=== PATIENT | male | born 2000 | race Caucasian/White ===

== ENCOUNTER 2021-07-23 21:30 | Emergency (ER) | payer MEDICAID, SELFPAY ==
[2021-07-23] MEDS: LORazepam 2 mg/mL INJ 1 mL 0.5 MG IVP (21:31)
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
--- NOTE | 2021-07-23 21:35 | ECG_ITS ---
[facility] Test Date: 2021-07-23 Pat Name: Nathaniel Swift Department: Room: Gender: Male Pul[employer]er: : 2000 Requested By: Ghanshyam Retana Order Number: [id number] Garcia MD: Erica Nation M.D. Measurements Intervals [place] Rate: 42 P: 29 IA: 114 QRS: 72 QRSD: 106 T: 58 QT: 508 QTc: 428 Interpretive Statements SINUS BRADYCARDIA WITH SHORT IA INTERVAL Compared to ECG 06/30/2019 14:03:57 Sinus rhythm no longer present Sinus arrhythmia no longer present Electronically Signed On 07-25-2021 5:47:03 CDT by Erica Nation M.D. [id number]
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
[2021-07-23 21:43] LABS: Basophils # 0.1 10^3/uL (0.0-0.1); Basophils % 0.4 %; Eosinophils % 0.3 %; Hematocrit 51.8 % (42.0-52.0); Hemoglobin 17.6 g/dL (11.7-16.6); Lymphocytes # 7.8 10^3/uL (0.8-4.8); Lymphocytes % 49.3 %; Mean Corpuscular Hemoglobin 30.4 pg (28.0-34.0); Mean Corpuscular Volume 89.6 fl (80-94); Monocytes # 0.9 10^3/uL (0.2-0.9); Monocytes % 5.9 %; Neutrophils # 6.92 10^3/uL (1.8-7.7); Neutrophils % 43.8 %; Nucleated Red Blood Cells % 0 %; Platelet Count 360 10^3/cmm (130-400); Red Blood Count 5.78 10^6/uL (4.1-5.3); Red Cell Distribution Width 12.7 % (12.1-15.1); White Blood Count 15.8 10^3/uL (4.0-10.0)
[2021-07-23 21:44] VITALS: BP 132/86; PULSE 43; RESP 18; TEMP 36.7; O2SAT 98; BMI 24.3
[2021-07-23] MEDS: ondansetron 2 mg/ML SDV 2 mL 4 MG IVP (21:45)
[2021-07-23 21:53] LABS: INR 1.06 (0.8-1.2)
[2021-07-23 21:54] LABS: Partial Thromboplastin Time 22.7 SECONDS (23.9-36.7)
[2021-07-23 22:00] LABS: Alanine Aminotransferase 12 U/L (0-41); Albumin Level 4.9 g/dL (3.5-5.2); Alcohol Level 263 mg/dL (0-10); Alkaline Phosphatase 93 IU/L (40-130); Anion Gap 20.7 (5-19); Aspartate Amino Transferase 21 U/L (0-40); Blood Urea Nitrogen 9 mg/dL (6-20); Calcium 9.1 mg/dL (8.5-10.5); Carbon Dioxide 20 mmol/L (22-29); Chloride 103 mmol/L (98-107); Globulin 3.2 g/dL (1.3-4.6); Glucose 122 mg/dL (65-115); Osmolality Calculated 292 mOsm/kg (285-295); Sodium 141 mmol/L (136-145); Total Bilirubin 0.3 mg/dL (0.15-1.2); Total Protein 8.1 g/dL (6.6-8.7)
[2021-07-23] MEDS: LORazepam 2 mg/mL INJ 1 mL 1 MG IVP (22:05)
[2021-07-23 22:10] LABS: Potassium 2.7 mmol/L (3.5-5.1); Slide Review Slide Review Perform
[2021-07-23] MEDS: succinylcholine 20 mg/mL SDV 10mL IVP (22:10)
--- NOTE | 2021-07-23 22:36 | XRR_ITS ---
PROCEDURE INFORMATION: Exam: XR Chest Exam date and time: 07/23/2021 10:36 PM Age: 20 years old Clinical indication: Device placement; Ett placement (vent status); Additional info: Tube placement TECHNIQUE: Imaging protocol: XR of the chest. Views: 1 view. COMPARISON: CR Chest 1 [place] [id number] 06/30/2019 2:06 PM FINDINGS: Tubes, catheters and devices: Endotracheal tube is well positioned above noel. Lungs: Unremarkable. No consolidation. Pleural spaces: No pneumothorax. Heart/Mediastinum: Unremarkable. No cardiomegaly. Bones/joints: No acute findings. XR/XR chest 1V [id number] IMPRESSION: No acute findings. Radiation Dose CTDIVOL = (mGy): DLP = (mGy-cm)
[2021-07-23] MEDS: fentaNYL 50 mcg/mL INJ 2mL IVP (22:39)
[2021-07-23 22:48] LABS: SARS Covid-2 Antigen Negative (Negative)
[2021-07-23 22:54] LABS: Add Urine Microscopic? YES; Bilirubin Urine Neg (Negative); Blood Urine 3+ (Negative); Glucose Urine UA Norm (Normal); Ketones Urine Negative (Negative); Leukocyte Esterase Urine Negative (Negative); Nitrate Urine Negative (Negative); Protein Urine Trace (Negative); Specific Gravity, Urine 1.015 (1.005-1.030); Urine Appearance Clear (CLEAR); Urine Color Yellow (Yellow); Urobilinogen Urine Norm (Negative); pH Urine 5 (5-7)
[2021-07-23 22:55] LABS: Add Urine Culture? No; Amphetamines Screen Urine Negative (Negative); Bacteria Urine TRACE /hpf; Barbiturates Screen Urine Negative (Negative); Benzodiazepines Screen Urine Negative (Negative); Cocaine Screen Urine Negative (Negative); Opiate Screen Urine Negative (Negative); PCP Screen Urine Negative (Negative); RBC Urine 0-4 /hpf (0-2); Squamous Epithelial Cell Urine 0-4 /hpf (0-5); THC Screen Urine Positive (Negative); WBC Urine 0-4 /hpf (0-5)
[2021-07-23 23:03] LABS: Blood Urea Nitrogen 10 mg/dL (6-20); Calcium 8.6 mg/dL (8.5-10.5); Carbon Dioxide 19 mmol/L (22-29); Chloride 103 mmol/L (98-107); Glomerular Filtration Rate 142.4 mL/min (90-130); Glucose 150 mg/dL (65-115); Osmolality Calculated 296 mOsm/kg (285-295); Sodium 142 mmol/L (136-145)
[2021-07-23 23:07] LABS: Anion Gap 22.7 (5-19); Potassium 2.7 mmol/L (3.5-5.1)
[2021-07-23] MEDS: propofol 1,000 MG/100 ML INJ 4.49 MG IV (23:13)
[2021-07-23] MEDS: vecuronium 10 mg SDV IVP (23:13)
[2021-07-23] MEDS: sodium chloride 0.9% 1,000 ML 999 ML IV (23:14)
[2021-07-23] MEDS: lidocaine 1% 5 ML in potassium chloride premix 100 ML 25 ML IV (23:15)
[2021-07-23] MEDS: tetanus-dipt-pertussis 0.5 mL SDV IM (23:15)
--- NOTE | 2021-07-23 23:37 | PC.NURSE ---
[facility] EMS AT BEDSIDE TO TRANSPORT PT.
[2021-07-24] MEDS: sodium chloride 3% 500 ML 30 ML IV (00:05)
[2021-07-24 00:10] VITALS: BP 132/78; PULSE 68; RESP 16; O2SAT 100
[2021-07-24 00:14] LABS: ABG PCO2 21.2 mmHg (35-45); Arterial Blood Gas Hematocrit 23.9 % (42-52); Base Excess ABG -22.3 mmol/L (-2.0-2.0); Blood Gas Allen Test Pos; Blood Gas Sample Site Radial, right; Blood Gas Sample Type Arterial; HCO3 ABG 6.1 mmol/L (22-26)
[2021-07-24 00:16] LABS: Oxygen Device VENT
[2021-07-24 00:20] VITALS: RESP 12
[2021-07-24] MEDS: mannitol 12.5 gm/50 mL (25%) SDV IV (00:24)
[2021-07-24 00:25] LABS: ABG PH Result 7.06 (7.35-7.45); PO2 ABG 36.3 mmHg (80.0-100.0)
== END 2021-07-24 00:10 ==
PROVIDERS: Emergency Medicine; Emergency Provider Emergency Medicine; PCP Family Medicine
DX: S09.90XA Unspecified injury of head, initial encounter (principal); R41.82 Altered mental status, unspecified; V48.1XXA Car passenger injured in noncollision transport accident in nontraffic accident, initial encounter; Z23 Encounter for immunization; Z20.822 Contact with and (suspected) exposure to COVID-19
CPT/HCPCS: 31500; 36600; 51702; 70450; 71045; 71250; 72125; 73090; 74176; 80048; 80053; 80306; 80307; 81001; 82803; 85025; 85610; 85730; 87426; 90471; 90715; 93005; 94002; 94799; 96365; 96366; 96367; 96368; 96375; 96376; 99291; J0330; J0690; J1953; J2060; J2150; J2405; J2704; J3010; J3475; J3480; J3490; J7030; J7131; J7799

== ENCOUNTER → 2021-09-05 16:22 | Outpatient (BNVA) | payer MEDICAID, OTHER, SELFPAY | PROVIDERS: PCP Family Medicine; Visit Provider Registered Nurse Neonatal Intensive Care | DX: Z20.822 Contact with and (suspected) exposure to COVID-19 (principal) | CPT/HCPCS: 87635 ==

== ENCOUNTER 2021-10-14 09:15 | Emergency (ER) | payer MEDICAID, SELFPAY ==
--- NOTE | 2021-10-14 09:42 | W.ED.DENTAL ---
HPI - Dental/Oral General: Stated complaint: dental/oral pain Time Seen by Provider: 10/14/21 09:38 History of Present Illness: HPI Narrative: Patient says he woke up with dental pain this morning. He has been on the road traveling and had this not too long ago and did not get into a dentist get it taken care of. Complaint: tooth pain Onset (ago): hour(s) Duration: constant Severity: mild Severity scale (1-10): 1 Relieving factors: nothing Associated symptoms: Reports no associated symptoms; Denies fever(s) Review of Systems Const: Denies: fever(s), chills or body aches Eyes: Denies: change in vision or blurry vision ENMT: Reports: dental pain; Denies: throat pain or nasal congestion Card: Denies: chest pain or dyspnea on exertion Resp: Denies: dyspnea, productive cough or non-productive cough GI: Denies: abdominal pain, nausea or vomiting : Denies: difficulty urinating Musc: Denies: extremity pain Skin/Breast: Denies: rash Neuro: Denies: headache(s) Psych: Denies: anxiety or depression Leo/Lymph: Denies: easy bruising Physical Exam Const: COMMON NORMALS: no acute distress GENERAL APPEARANCE: cooperative HENMT: COMMON NORMALS: EAC's normal and Normal external nose present FACE & SINUS: normal facial exam NOSE: Normal external nose present EXTERNAL AUDITORY CANAL: EAC's normal TEETH & GINGIVA IMAGES: 1. Dental caries gum is nonswollen. THROAT: posterior oropharynx normal Lymph: LYMPHATIC: no lymphadenopathy noted Psych: COMMON NORMALS: mental status grossly normal Skin: COMMON NORMALS: no rashes or lesions noted GENERAL SKIN EXAM: no rashes or lesions noted Discharge Plan Discharge Prescriptions: No Action No Known Home Medications RF: 0 Coding Level of Care Code ED Software Engineering Associate Manager for Louis Albarran
[2021-10-14 10:05] VITALS: BP 148/86; PULSE 60; RESP 18; TEMP 36.8; O2SAT 98
== END 2021-10-14 10:39 | disposition home or self-care (01) ==
PROVIDERS: Emergency Provider Nurse Practitioner Family; PCP Family Medicine
DX: K08.89 Other specified disorders of teeth and supporting structures (principal)
CPT/HCPCS: 99281

== ENCOUNTER 2021-11-16 11:48 | Emergency (ER) | payer MEDICAID, SELFPAY ==
[2021-11-16 12:03] VITALS: BP 138/78; PULSE 96; RESP 18; TEMP 36.6; O2SAT 97; BMI 20.9
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
[2021-11-16 12:20] VITALS: BP 138/87; PULSE 89; RESP 16; O2SAT 99
== END 2021-11-16 13:23 | disposition home or self-care (01) ==
PROVIDERS: Emergency Provider Physician Assistant; PCP Family Medicine
DX: S51.821A Laceration with foreign body of right forearm, initial encounter (principal); W25.XXXA Contact with sharp glass, initial encounter
CPT/HCPCS: 73110; 99282

== ENCOUNTER 2021-12-28 05:34 | Emergency (ER) | payer MEDICAID, SELFPAY ==
[2021-12-28 05:42] VITALS: BP 114/71; PULSE 68; RESP 18; TEMP 36.6; O2SAT 97; BMI 21.2
--- NOTE | 2021-12-28 05:55 | W.ED.WOUNDLC ---
HPI - Wound/Laceration General: Chief Complaint: Wound/Laceration Stated Complaint: Rt hand (3) fingers cut Time Seen by Provider: 12/28/21 05:53 Source: patient Mode of arrival: ambulatory Limitations: no limitations History of Present Illness: 21-year-old male states that he was picking stuff out of his yard this morning at 2 AM and there was something sharp he is unsure what was the lacerated distal tip of his right ring finger does have a superficial 1 cm laceration he states he is up-to-date on tetanus no other injuries noted bleeding controlled Associated symptoms: Denies chills, fever(s), nausea or vomiting Review of Systems Const: Denies: fever(s), chills, body aches or change in appetite Eyes: Denies: blurry vision or eye discomfort ENMT: Denies: throat pain or dental pain Card: Denies: chest pain Resp: Denies: dyspnea GI: Denies: abdominal pain, nausea, vomiting or diarrhea : Denies: dysuria Musc: Denies: neck pain or back pain Skin/Breast: Denies: rash Neuro: Denies: headache(s) Psych: Denies: depression Leo/Lymph: Denies: easy bruising All/Imm: Denies: urticaria Physical Exam Const: COMMON NORMALS: no acute distress, patient oriented x3 and healthy appearing HENMT: COMMON NORMALS: normocephalic and atraumatic HEAD & SCALP: normocephalic and atraumatic Eye: COMMON NORMALS: Equal, round and reactive pupils present and EOMs intact bilaterally PUPIL: Yes Equal, round and reactive pupils present Neck/C-Spine: COMMON NORMALS: full ROM and supple Chest: COMMONS NORMALS: normal inspection of the chest and normal palpation of entire chest wall Resp: COMMON NORMALS: normal respiratory effort, No retractions, No use of accessory muscles and clear to auscultation bilaterally AUSCULTATION: clear to auscultation bilaterally Cardio: COMMON NORMALS: regular rate, regular rhythm and No murmurs present (Cardio) RATE: regular rate RHYTHM: regular rhythm GI: COMMON NORMALS: Normal to inspection, nondistended, normoactive bowel sounds present, Soft to palpation, non-tender and no masses PALPATION: Yes Soft to palpation Extremity: COMMON NORMALS: normal to inspection and full ROM Neuro: COMMON NORMALS: patient oriented x3, moves all extremities and no focal motor deficits Psych: COMMON NORMALS: mental status grossly normal, Normal thought process present and cooperative THOUGHT PROCESS: Normal thought process present Skin: COMMON NORMALS: no rashes or lesions noted NARRATIVE SKIN EXAM: superficial one cm laceration to distal ring finger on right hand GENERAL SKIN EXAM: no rashes or lesions noted Procedures Laceration Laceration 1: Site: hand Side (If applicable): right Size (cm): 1 Description: linear Depth: simple, single layer Pre-repair: irrigated extensively Skin layer closed with: other (dermabond) Course Vital Signs: Vital signs: Vital Signs Temperature 98 F 12/28/21 05:42 Pulse Rate 70 12/28/21 06:04 Respiratory Rate 17 12/28/21 06:04 Blood Pressure 114/72 12/28/21 06:04 Pulse Oximetry 97 12/28/21 06:04 MDM - Wound/Laceration Medical Decision Making Patient presents here with a laceration to right ring finger superficial in nature just the distal pad was able to repair with glue he is up-to-date on tetanus he stable for discharge Discharge Plan Discharge Patient Disposition: Home Clinical Impression: Laceration Condition: Stable Prescriptions: No Action Celebrex 100 mg capsule 100 mg PO BID Qty: 20 0RF Discharge Orders: Discharge ED (Routine); Ordered 12/28/21 Ordered By: Hugo Blevins Referrals: Magdaleno Flores MD [Primary Care Provider] - Discharge Diet: Advance as tolerated Discharge Activity: Resume usual activity Patient Instructions: Laceration (ED) Coding Level of Care Code ED Health Care Aide for Karing Fwd Exam Comprehensive
[2021-12-28 06:04] VITALS: BP 114/72; PULSE 70; RESP 17; O2SAT 97
[2021-12-28] MEDS: naproxen 500 mg Tablet PO (06:12)
== END 2021-12-28 06:14 | disposition home or self-care (01) ==
PROVIDERS: Emergency Provider Emergency Medicine; PCP Family Medicine
DX: S61.214A Laceration without foreign body of right ring finger without damage to nail, initial encounter (principal); W26.8XXA Contact with other sharp object(s), not elsewhere classified, initial encounter
CPT/HCPCS: 12001; 99283

== ENCOUNTER 2022-06-05 14:37 | Emergency (ER) | payer MEDICAID, SELFPAY ==
--- NOTE | 2022-06-05 14:40 | XR_ITS ---
WS: [id number] Left foot, 3 views, 06/05/2022 Clinical Data: swollen, pain L foot Comparison: None. Findings: There is an oblique fracture of the distal left fifth metatarsal with no significant displacement. Th ere is soft tissue swelling over the fracture site. The remainder of the foot shows no other abnormalities. The joint spaces are normal. XR/XR foot LT min 3V* [id number] Impression: Oblique fracture of distal left fifth metatarsal.
[2022-06-05 15:25] VITALS: BP 109/70; PULSE 69; RESP 14; TEMP 36.5; O2SAT 99; BMI 21.2
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
[2022-06-05 15:38] VITALS: BP 109/70; PULSE 69; RESP 14; TEMP 36.5; O2SAT 99
--- NOTE | 2022-06-08 12:11 | DCPLANNER ---
Addendum entered by Teresa Wilde 06/18/22 08:31: territory development manager received the following message from the ortho clinic regarding follow up appointment: Attempted to call and schedule pt with [facility] Lindquist per Dr. Hung. No vm/mailed letter Original Note: territory development manager had message to schedule a follow up appointment for patient with ortho. territory development manager sent patients information to the front office staff at ortho. Patients information will be printed and reviewed. Clinic will call patient with appointment information.
== END 2022-06-05 16:19 | disposition home or self-care (01) ==
PROVIDERS: Emergency Provider Physician Assistant; PCP Family Medicine
DX: S92.355A Nondisplaced fracture of fifth metatarsal bone, left foot, initial encounter for closed fracture (principal); W16.622A Jumping or diving into natural body of water striking bottom causing other injury, initial encounter
CPT/HCPCS: 73630; 97760; 99283; E0114; L4361

== ENCOUNTER 2022-08-09 21:13 | Emergency (ER) | payer MEDICAID, SELFPAY ==
[2022-08-09 21:19] VITALS: BP 119/65; PULSE 96; RESP 16; TEMP 36.7; O2SAT 97
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
[2022-08-09] MEDS: sodium chloride 0.9% 1,000 ML 999 ML IV (22:32)
[2022-08-09] MEDS: diphenhydrAMINE 50 mg/mL SDV 1mL 25 MG IVP (22:33)
[2022-08-09] MEDS: famotidine 20 mg/2 mL INJ 40 MG IVP (22:42)
[2022-08-09 23:34] VITALS: BP 114/75; PULSE 60; RESP 17; O2SAT 98
== END 2022-08-09 23:36 | disposition home or self-care (01) ==
PROVIDERS: Emergency Provider Emergency Medicine
DX: L50.9 Urticaria, unspecified (principal); T78.40XA Allergy, unspecified, initial encounter
CPT/HCPCS: 96361; 96374; 96375; 99284; J1200; J2930; J3490; J7030

== ENCOUNTER 2023-10-30 08:04 | Emergency (ER) | payer SELFPAY ==
--- NOTE | 2023-10-30 08:13 | W.ED.CHESTPA ---
HPI - Chest Pain General: Chief Complaint: General Medical Stated Complaint: chest pain Time Seen by Provider: 10/30/23 08:13 Source: patient Mode of arrival: ambulatory History of Present Illness: 22-year-old male presents emergency room complaining of generally not feeling well has some chest tightness and discomfort sensation that he cannot breeze. He is tachypneic on arrival very anxious. Patient states he thinks he is withdrawing from oxycodone. When asked him how much he usually takes he states he will take 15 or more 30 mg tablets every day he last had any last evening. Denies taking any other medications recently. MD complaint: chest discomfort Onset (ago): hour(s) Timing of current episode: episodic Prior episodes: Yes Onset: during rest Pain location: left chest Pain radiation: none Severity: moderate Quality: tightness and heaviness Relieving factors: nothing Exacerbating factors: nothing Associated symptoms: Reports dyspnea, nausea, palpitations and other; Deny abdominal pain, diaphoresis, fever(s), leg edema, sense of impending doom, syncope or vomiting Review of Systems Const: Denies: fever(s), chills or diaphoresis Card: Reports: palpitations; Denies: chest pain or syncope Resp: Reports: dyspnea GI: Reports: nausea; Denies: abdominal pain or vomiting : Denies: dysuria, urinary frequency or urinary urgency Musc: Denies: neck pain or back pain Skin/Breast: Denies: rash [facility] ED PFSH: Medical History (Updated 10/30/23 @ 09:53 by Gerardo Mcrae DO) Subdural hematoma Surgical History (Updated 10/30/23 @ 08:26 by Gerardo Mcrae DO) H/O craniotomy Physical Exam Const: GENERAL APPEARANCE: cooperative and anxious ORIENTATION/CONSCIOUSNESS: Yes awake, Yes oriented to person, Yes oriented to place and Yes oriented to time HENMT: COMMON NORMALS: normocephalic, atraumatic and hearing grossly normal bilaterally HEAD & SCALP: normocephalic and atraumatic Resp: COMMON NORMALS: normal respiratory effort, No retractions, No use of accessory muscles and clear to auscultation bilaterally AUSCULTATION: clear to auscultation bilaterally Cardio: COMMON NORMALS: regular rate, regular rhythm and No murmurs present (Cardio) RATE: regular rate RHYTHM: regular rhythm GI: COMMON NORMALS: Soft to palpation and No hepatosplenomegaly present AUSCULTATION: Yes normoactive bowel sounds PALPATION: Yes Soft to palpation, No Tenderness to palpation present (GI), No Guarding due to palpation present (GI) and Yes No hepatosplenomegaly present Extremity: COMMON NORMALS: normal to inspection, capillary refill normal, no clubbing, cyanosis or edema, no calf tenderness and no pedal edema Neuro: SENSORIUM/ORIENTATION: Yes oriented to person, Yes oriented to place and Yes oriented to time Skin: COMMON NORMALS: no rashes or lesions noted GENERAL SKIN EXAM: no rashes or lesions noted Course Vital Signs: Vital signs: Vital Signs Temperature 98.2 F 10/30/23 08:28 Pulse Rate 73 10/30/23 10:14 Respiratory Rate 16 10/30/23 10:28 Blood Pressure 124/95 10/30/23 08:57 Pulse Oximetry 93 10/30/23 10:28 Oxygen Delivery Me thod Room Air 10/30/23 10:14 MDM - Chest Pain Medical Decision Making Labs and imaging reviewed improved with fluids medications will discharge patient home with hydroxyzine to use as needed he is 2 days since his last use of OxyContin. Encouraged follow-up with [facility] or other programs that might help him obtain abstinence from narcotics. Medical Records I reviewed the patient's medical records. Lab Data I reviewed the patient's lab results. 10/30/23 08:28 10/30/23 08:28 Radiology Impressions Chest X-Ray 10/30/23 08:14 IMPRESSION: No acute disease. Laboratory Results WBC 14.42 10^3/uL (3.29-11.43) H 10/30/23 08:28 RBC 5.51 10^6/uL (3.85-5.65) 10/30/23 08:28 Hgb 16.30 g/dL (11.27-16.99) 10/30/23 08:28 Hct 48.1 % (37-53) 10/30/23 08:28 MCV 87.3 fl (82-101) 10/30/23 08:28 MCH 29.6 pg (27-33) 10/30/23 08:28 MCHC 33.9 g/dL (30-55) 10/30/23 08:28 RDW 12.2 % (12.1-15.1) 10/30/23 08: Plt Count 265 10^3/cmm (157-399) 10/30/23 08: MPV 9.2 fL (7.4-10.4) 10/30/23 08: Neut % (Auto) 81.5 % 10/30/23 08: Lymph % (Auto) 14.4 % 10/30/23 08: [place] % (Auto) 3.4 % 10/30/23 08: Eos % (Auto) 0.1 % 10/30/23 08: Baso % (Auto) 0.3 % 10/30/23 08: Neut # (Auto) 11.76 10^3/uL (1.8-7.7) H 10/30/23 08: Lymph # (Auto) 2.1 10^3/uL (0.8-4.8) 10/30/23 08: [place] # (Auto) 0.5 10^3/uL (0.2-0.9) 10/30/23 08: Eos # (Auto) 0.0 10^3/uL (0.0-0.8) 10/30/23 08: Baso # (Auto) 0.0 10^3/uL (0.0-0.1) 10/30/23 08: Nucleated RBC % (auto) 0 % 10/30/23 08: Nucleated RBCs # 0.0 /100WBC 10/30/23 08:28 Specimen Type Arterial 10/30/23 08:23 Sample Site Radial, right 10/30/23 08:23 ABG pH 7.61 (7.35-7.45) H* 10/30/23 08: ABG pCO2 22.5 mmHg (35-45) L 10/30/23 08: ABG pO2 65.7 mmHg (80.0-100.0) L 10/30/23 08: ABG PO2/FiO2 Ratio 0 10/30/23 08: ABG HCO3 22.4 mmol/L (22-26) 10/30/23 08: ABG O2 Saturation 96.5 10/30/23 08:23 ABG Base Excess 3.1 mmol/L (-2.0-2.0) H 10/30/23 08:23 Nickolas Test Pos 10/30/23 08:23 A-a O2 Gradient 7.5 mmHg (5-10) 10/30/23 08:23 Hematocrit 51.1 % (42-52) 10/30/23 08:23 Hgb O2 Saturation 92.2 % (95-100) L 10/30/23 08:23 Carboxyhemoglobin 4.3 %THgb (0.4-20.1) 10/30/23 08:23 Methemoglobin 0.2 % (0.4-1.5) L 10/30/23 08:23 Total Hemoglobin 16.7 g/dL (14-18) 10/30/23 08:23 Sodium 141.0 mmol/L (131-143) 10/30/23 08:23 Potassium 3.0 mmol/L (3.5-5.0) L 10/30/23 08:23 Glucose 132.0 mg/dL (70-115) H 10/30/23 08:23 Ionized Calcium 1.2 mmol/L (1.1-1.4) 10/30/23 08:23 O2 Delivery Device Room air 10/30/23 08:23 FiO2 21.0 % 10/30/23 08:23 Shift Supervisor Melting ID Williama 10/30/23 08:23 Sodium 138 mmol/L (136-145) 10/30/23 08:28 Potassium 3.4 mmol/L (3.5-5.1) L 10/30/23 08:28 Chloride 102 mmol/L (98-107) 10/30/23 08:28 Carbon Dioxide 20 mmol/L (22-29) L 10/30/23 08:28 Anion Gap 19.4 (5-19) H 10/30/23 08:28 BUN 10 mg/dL (6-20) 10/30/23 08:28 Creatinine 0.7 mg/dL (0.7-1.2) 10/30/23 08:28 GFR Calculation 139.8 mL/min (90-130) H 10/30/23 08:28 Glucose 136 mg/dL (65-115) H 10/30/23 08:28 Calculated Osmolality 287 mOsm/kg (285-295) 10/30/23 08:28 Calcium 10.4 mg/dL (8.5-10.5) 10/30/23 08:28 Total Bilirubin 0.4 mg/dL (0.15-1.2) 10/30/23 08:28 AST 21 U/L (0-40) 10/30/23 08:28 ALT 24 U/L (0-41) 10/30/23 08:28 Alkaline Phosphatase 111 U/L (40-130) 10/30/23 08:28 Total Protein 7.8 g/dL (6.6-8.7) 10/30/23 08:28 Albumin 4.8 g/dL (3.5-5.2) 10/30/23 08:28 Globulin 3.0 g/dL (1.3-4.6) 10/30/23 08:28 Acetaminophen < 5.0 ug/mL (10-30) L 10/30/23 08:28 All radiology interpretation(s) finalized by discharge Discharge Plan Discharge Patient Disposition: Home Clinical Impression: Hyperventilation, Narcotic abuse Condition: Stable Prescriptions: New hydroxyzine HCl 25 mg tablet 25 mg PO Q4H PRN (Reason: anxiety/nausea and vomitting) Qty: 15 0RF Narcan 4 mg/actuation spray,non-aerosol 1 spray intranasal Q2M PRN (Reason: opioid overdose) Qty: 2 0RF Rx Instructions: spray 1 dose into ONE nostril; alternate nostrils w each dose until help arrives No Action oxycodone 30 mg Tablet See Rx Instructions .ROUTE .COMPLEX Rx Instructions: 30mg po up to ten times a day albuterol sulfate 90 mcg/actuation Hfa Aerosol Inhaler 2 puff INHALATION QID PRN (Reason: Shortness Of Breath) Discharge Orders: Discharge ED (Routine); Ordered 10/30/23 Ordered By: Gerardo Mcrae Discharge Diet: Usual diet Discharge Activity: Resume usual activity Patient Instructions: Hyperventilation (ED), Narcotic Use Disorder (ED), Opioid Safety, Pain Management Activity Restrictions/Additional Instructions: Thank you for choosing [facility] for your healthcare needs today. Please realize this is an emergency room and that we are providing you with a medical screening exam and this may not be complete and all inclusive of all the testing and or work up that you may need to determine your ailment or severity of your illness. It is very important that you follow up as instructed or that you return to the Emergency Department should you have concerns or if your condition changes or worsens in any way. You were given a prescription for Narcan to use in the event of narcotic overdose. Recommend that you seek out professional assistance with opioid abuse to achieve abstinence from opioids Coding Level of Care Code ED Catia Designer for Louis Albarran
--- NOTE | 2023-10-30 08:14 | XRR_ITS ---
PROCEDURE INFORMATION: Exam: XR Chest Exam date and time: 10/30/2023 8:35 AM Age: 22 years old Clinical indication: Cough and dyspnea; Additional info: Dyspnea/cough TECHNIQUE: Imaging protocol: Radiologic exam of the chest. Views: 1 view. COMPARISON: CT chest abdpel [id number] 07/23/2021 10:46 PM FINDINGS: Lungs: Unremarkable. No consolidation. Pleural spaces: Unremarkable. No pleural effusion. No pneumothorax. Heart/Mediastinum: Unremarkable. No cardiomegaly. Bones/joints: Mild scoliosis. Old healed right clavicular fracture. XR/XR chest 1V portable [id number] IMPRESSION: No acute disease.
--- NOTE | 2023-10-30 08:18 | ECG_ITS ---
[facility] Test Date: 2023-10-30 Pat Name: Ramon Swift Department: Room: Gender: Male Valuation Manager: : 2000 Requested By: Gerardo Box Order Number: [id number] Radha MD: Darell Yancey M.D. Measurements Intervals [place] Rate: 92 P: 76 NC: 120 QRS: 81 QRSD: 98 T: 50 QT: 361 QTc: 448 Interpretive Statements SINUS RHYTHM WITH OCCASIONAL VENTRICULAR PREMATURE COMPLEXES NONSPECIFIC ST & T-WAVE ABNORMALITY Compared to ECG 07/23/2021 23:01:24 Ventricular premature complex(es) now present T-wave abnormality now present Sinus bradycardia no longer present Short NC interval no longer present Electronically Signed On 10-30-2023 9:45:24 [employer]CHIT[employer] by Darell Yancey M.D. [email or web address]
[2023-10-30 08:28] VITALS: BP 127/95; PULSE 90; RESP 22; TEMP 36.8; O2SAT 96; BMI 22.8
[2023-10-30 08:35] LABS: Blood Gas Allen Test Pos; Blood Gas Sample Type Arterial; Ionized Calcium Level - ABG 1.2 mmol/L (1.1-1.4)
[2023-10-30 08:36] LABS: Blood Gas Sample Site Radial, right; Oxygen Device ROOM AIR; PO2 FiO2 Ratio Arterial Blood 0
[2023-10-30 08:36] LABS: Basophils % 0.3 %; Eosinophils % 0.1 %; Hematocrit 48.1 % (37-53); Lymphocytes # 2.1 10^3/uL (0.8-4.8); Lymphocytes % 14.4 %; Mean Corpuscular HGB Conc 33.9 g/dL (30-55); Mean Corpuscular Hemoglobin 29.6 pg (27-33); Mean Corpuscular Volume 87.3 fl (82-101); Mean Platelet Volume 9.2 fL (7.4-10.4); Monocytes # 0.5 10^3/uL (0.2-0.9); Monocytes % 3.4 %; Neutrophils # 11.76 10^3/uL (1.8-7.7); Neutrophils % 81.5 %; Nucleated Red Blood Cells % 0 %; Platelet Count 265 10^3/cmm (157-399); Red Blood Count 5.51 10^6/uL (3.85-5.65); Red Cell Distribution Width 12.2 % (12.1-15.1); White Blood Count 14.42 10^3/uL (3.29-11.43)
[2023-10-30] MEDS: LORazepam 2 mg/mL INJ 10 mL MDV IVP (08:56)
[2023-10-30 08:57] VITALS: BP 124/95; PULSE 64; RESP 14; O2SAT 92
[2023-10-30 08:58] LABS: ABG PCO2 22.5 mmHg (35-45); Alveolar-Arterial Oxygen Gradi 7.5 mmHg (5-10); Arterial Blood Gas Hematocrit 51.1 % (42-52); Base Excess ABG 3.1 mmol/L (-2.0-2.0); Blood Gas Operator Identificat BROMA; Carboxyhemoglobin 4.3 %THgb (0.4-20.1); HCO3 ABG 22.4 mmol/L (22-26); HGB O2 Sat 92.2 % (95-100); Methemoglobin 0.2 % (0.4-1.5); Oxygen Saturation ABG 96.5; PO2 ABG 65.7 mmHg (80.0-100.0); Total Hemoglobin 16.7 g/dL (14-18)
--- NOTE | 2023-10-30 09:01 | PC.PHAR ---
pt states he takes no prescription medications pt states he takes oxycodone 30mg up to 10 times a day and uses his wifes albuterol inhaler prn-notes are made in the pharmacy comments
[2023-10-30 09:02] LABS: ABG PH Result 7.61 (7.35-7.45)
[2023-10-30 09:09] LABS: Alanine Aminotransferase 24 U/L (0-41); Albumin Level 4.8 g/dL (3.5-5.2); Alkaline Phosphatase 111 U/L (40-130); Anion Gap 19.4 (5-19); Aspartate Amino Transferase 21 U/L (0-40); Blood Urea Nitrogen 10 mg/dL (6-20); Calcium 10.4 mg/dL (8.5-10.5); Carbon Dioxide 20 mmol/L (22-29); Chloride 102 mmol/L (98-107); Glomerular Filtration Rate 139.8 mL/min (90-130); Glucose 136 mg/dL (65-115); Osmolality Calculated 287 mOsm/kg (285-295); Potassium 3.4 mmol/L (3.5-5.1); Sodium 138 mmol/L (136-145); Total Bilirubin 0.4 mg/dL (0.15-1.2); Total Protein 7.8 g/dL (6.6-8.7)
[2023-10-30 09:10] LABS: Acetaminophen < 5.0 ug/mL (10-30)
[2023-10-30 10:14] VITALS: PULSE 73; RESP 24; O2SAT 92
[2023-10-30 10:28] VITALS: RESP 16; O2SAT 93
== END 2023-10-30 10:29 | disposition home or self-care (01) ==
PROVIDERS: Emergency Provider Family Medicine
DX: R06.4 Hyperventilation (principal); F11.10 Opioid abuse, uncomplicated
CPT/HCPCS: 36415; 36600; 71045; 80051; 80053; 80307; 82330; 82805; 85025; 93005; 96374; 99285; J2060

== ENCOUNTER 2025-04-05 10:36 | Emergency (ER) | payer SELFPAY ==
[2025-04-05 11:27] VITALS: BP 165/89; PULSE 118; TEMP 36.8; O2SAT 97; BMI 23.6
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
== END 2025-04-05 14:47 | disposition home or self-care (01) ==
PROVIDERS: Emergency Provider Physician Assistant
DX: S00.03XA Contusion of scalp, initial encounter (principal); V89.2XXA Person injured in unspecified motor-vehicle accident, traffic, initial encounter; Z87.820 Personal history of traumatic brain injury
CPT/HCPCS: 70450; 72125; 99284

== ENCOUNTER 2025-04-10 13:55 | Emergency (ER) | payer SELFPAY ==
[2025-04-10 14:00] VITALS: BP 127/84; PULSE 101; RESP 16; TEMP 36.7; O2SAT 97
[2025-04-10 14:07] VITALS: BP 142/86; PULSE 101; RESP 18; O2SAT 95
--- OUTSIDE RECORDS SUMMARY | 2025-04-10 14:17 | XMS_ITS | Clinical Summary ---
Author Organization [facility] Address [address] [place] [address] Phone Care Team Providers Care Injection Molding Engineer Name Role Phone Unavailable Primary Care Provider Unavailabl e Allergies No known active allergies Medications cephALEXin (KEFLEX) 500 mg capsule Take 500 mg by mouth 4 times daily. Active HYDROcodone-katrina taminophen (NORCO) 7.5-325 mg TabletIndicatio ns:Foreign body (FB) in soft tissue Take 1 Tablet by mouth every 4 hours as needed for Pain, Severe. Max Daily Amount: 6 Tablets 30 Tablet 11/20/2021 4:40 PM RETAIL SECURITY PROFESSIONAL 11/20/2021 Active Active Problems Problem Noted Date Diagnosed Date Epidural hematoma 07/24/2021 Temporal bone fracture 07/24/2021 Fracture of left zygomatic arch 07/24/2021 Abrasion of left chest wall 07/24/2021 Acute respiratory failure 07/24/2021 Altered mental status Closed skull fracture Alcoholic intoxication with complication Family History Medical History Relation Name Comments Healthy Father Heart Disease Mother Relation Name Status Comments Father Alive Mother Social History Tobacco Use Types Packs/Day Years Used Date Smoking Tobacco: Every Day Smokeless Tobacco: Never Sex and Gender Information Value Date Recorded Sex Assigned at Not on file Legal Sex Male 3:44 AM RETAIL SECURITY PROFESSIONAL Gender Identity Not on file Sexual Orientation Not on file Last Filed Vital Signs Vital Sign Reading Time Taken Comments Blood Pressure 124/90 12/03/2021 9:42 AM RETAIL SECURITY PROFESSIONAL Pulse 87 12/03/2021 9:42 AM RETAIL SECURITY PROFESSIONAL Temperature 37.1 C (98.8 F) 11/25/2021 2:25 PM RETAIL SECURITY PROFESSIONAL Respiratory Rate 18 11/25/2021 2:25 PM RETAIL SECURITY PROFESSIONAL Oxygen Saturation 99% 11/25/2021 2:25 PM RETAIL SECURITY PROFESSIONAL Inhaled Oxygen Concentration - - Weight 63 kg (139 lb) 12/03/2021 9:42 AM RETAIL SECURITY PROFESSIONAL Height 172.7 cm (5' 8 ) 12/03/2021 9:42 AM RETAIL SECURITY PROFESSIONAL Body Mass Index 21.13 12/03/2021 9:42 AM RETAIL SECURITY PROFESSIONAL Plan of Treatment Health Maintenance Due Date Last Done Comments HPV VACCINES (1 - Male 3-dose series) 2014 DTAP/TDAP/TD VACCINES (1 - Tdap) 2018 HEPATITIS B VACCINES (1 of 3 - 19+ 3-dose series) 11/12 INFLUENZA VACCINE (#1) 2024 Medical Devices Implanted Type Area Musical Instrument Maker Or Repairer Device Identifier Shelf Expiration Date Model / Serial / Lot Hemostatic Surgiflo 8ml W/ Thrombin 2994 - [id number] Implanted:Qty: 1 on 07/24/2021 at [facility] Hemostatic N/A: Cranial J&J- [employer] [id number] 12/08/2022 2994 / / [id number] Hemostatic Surgiflo 8ml W/ Thrombin 2994 - [id number] Implanted:Qty: 1 on 07/24/2021 at [facility] Hemostatic N/A: Cranial J[employer]J- [employer] [id number] 11/10/2022 2994 / / [id number] Hemostatic Surgicel 6x9in 194 - [id number] Implanted:Qty: 1 on 07/24/2021 at [facility] Hemostatic N/A: Cranial J&J- [employer] [id number] 12/08/2024 1946 / / [id number] Hemostatic Surgiflo 8ml W/ Thrombin 2994 - [id number] Implanted:Qty: 1 on 07/24/2021 at [facility] Hemostatic N/A: Cranial J[employer]J- [employer] [id number] 12/08/2022 2994 / / [id number] Hemostatic Surgiflo 8ml W/ Thrombin 2994 - [id number] Implanted:Qty: 1 on 07/24/2021 at [facility] Hemostatic N/A: Cranial J&J- [employer] [id number] 11/10/2022 2994 / / [id number] Hemostatic Surgifoam Sz100 1974 - [id number] Implanted:Qty: 1 on 07/24/2021 at [facility] Hemostatic N/A: Cranial J&J- [employer] [id number] 03/05/2025 1974 / / [id number] Plate Matrxneuro Bur Hl Cvr 023 - [id number] Implanted:Qty: 1 on 07/24/2021 by Ela Vasquez MD at [facility] Plate N/A: Cranial J&J- DEPUY SYNTHES [id number] 503.0 23 / / Plate Matrxneuro Bur Hl Cvr 023 - [id number] Implanted:Qty: 1 on 07/24/2021 by Ela Vasquez MD at [facility] Plate N/A: Cranial J&J- DEPUY SYNTHES [id number] 503.0 23 / / Plate Matrxneuro X 064 - [id number] Implanted:Qty: 1 on 07/24/2021 by Ela Vasquez MD at [facility] Plate N/A: Cranial J&J- DEPUY SYNTHES [id number] 503.0 64 / / Screw Matrixneuro Sd . - [id number] Implanted:Qty: 1 on 07/24/2021 by Ela Vasquez MD at [facility] Screw N/A: Cranial J&J- DEPUY SYNTHES [id number] 503.1 04.01 / / Screw Matrixneuro Sd .. - [id number] Implanted:Qty: 1 on 07/24/2021 at [facility] Screw N/A: Cranial J&J- DEPUY SYNTHES [id number] 503.1 04.01 / / Screw Matrixneuro Sd ..01 - [id number] Implanted:Qty: 1 on 07/24/2021 at [facility] Screw N/A: Cranial J&J- DEPUY SYNTHES [id number] 503.1 04.01 / / Screw Matrixneuro Sd . - [id number] Implanted:Qty: 1 on 07/24/2021 at [facility] Screw N/A: Cranial J&J- DEPUY SYN[employer]ES [id number] 04.503.1 04.01 / / Screw Matrixneuro Sd 104. - [id number] Implanted:Qty: 1 on 07/24/2021 at [facility] Screw N/A: Cranial J&J- DEPUY SYNTHES [id number] 04.503.1 04.01 / / Screw Matrixneuro Sd .104. - [id number] Implanted:Qty: 1 on 07/24/2021 at [facility] Screw N/A: Cranial J&J- DEPUY SYNTHES [id number] 04.503.1 04.01 / / Screw Matrixneuro Sd 104. - [id number] Implanted:Qty: 1 on 07/24/2021 at [facility] Screw N/A: Cranial J&J- DEPUY SYNTHES [id number] 04.503.1 04.01 / / Screw Matrixneuro Sd 104. - [id number] Implanted:Qty: 1 on 07/24/2021 at [facility] Screw N/A: Cranial J&J- DEPUY SYNTHES [id number] 04.503.1 04.01 / / Screw Matrixneuro Sd 104. - [id number] Implanted:Qty: 1 on 07/24/2021 at [facility] Screw N/A: Cranial J&J- DE[employer]ES [id number] 04.503.1 04.01 / / Screw Matrixneuro Sd 104. - [id number] Implanted:Qty: 1 on 07/24/2021 by Ela Vasquez MD at [facility] Screw N/A: Cranial J&J- [employer]ES [id number] 04.503.1 04.01 / / Screw Matrixneuro Sd 104. - [id number] Implanted:Qty: 1 on 07/24/2021 at [facility] Screw N/A: Cranial J&J- DEPUY SYNTHES [id number] 04.503.1 04.01 / / Insurance [address] [place] [address] RX HICKS PLANS (INTERNAL) [facility] [employer] RX INFOCROSSING Medicaid [address] [place] [address] [place] [address] Advance Directives For more information, please contact: [phone] * Full Code (Latest Code Status on File) Date Activated Date Inactivated Comments 11/20/2021 1:05 PM 11/20/2021 7:19 PM * Full Code Date Activated Date Inactivated Comments 07/24/2021 2:21 AM 07/28/2021 8:11 PM
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
--- NOTE | 2025-04-10 15:48 | DCPLANNER ---
Made appt for patient at [facility]- spoke to Giulia- 11am tomorrow $110 due at time of service.
[2025-04-10 15:55] VITALS: BP 143/104; PULSE 91; O2SAT 92
--- NOTE | 2025-04-11 06:59 | DCPLANNER ---
Referral sent to [facility]
== END 2025-04-10 15:56 | disposition home or self-care (01) ==
PROVIDERS: Emergency Provider Family Medicine
DX: S06.0XAA Concussion with loss of consciousness status unknown, initial encounter (principal); V89.2XXA Person injured in unspecified motor-vehicle accident, traffic, initial encounter
CPT/HCPCS: 70450; 99284

== ENCOUNTER 2025-07-17 12:43 | Emergency (ER) | payer SELFPAY ==
--- OUTSIDE RECORDS SUMMARY | 2025-07-17 12:47 | XMS_ITS | Clinical Summary ---
Author Organization [facility] Address [address] [place] [address] Phone Care Team Providers Care Sharepoint Consultant Name Role Phone Unavailable Primary Care Provider [...] 6 Tablets 30 Tablet 11/20/2021 4:40 PM PATTERNMAKER METAL 11/20/2021 Active Active Problems Problem Noted Date [...] on file Legal Sex Male 3:44 AM PATTERNMAKER METAL Gender Identity Not on file Sexual Orientation Not on file Last Filed Vital Signs Vital Sign Reading Time Taken Comments Blood Pressure 124/90 12/03/2021 9:42 AM PATTERNMAKER METAL Pulse 87 12/03/2021 9:42 AM PATTERNMAKER METAL Temperature 37.1 C (98.8 F) 11/25/2021 2:25 PM PATTERNMAKER METAL Respiratory Rate 18 11/25/2021 2:25 PM PATTERNMAKER METAL Oxygen Saturation 99% 11/25/2021 2:25 PM PATTERNMAKER METAL Inhaled Oxygen Concentration - - Weight 63 kg (139 lb) 12/03/2021 9:42 AM PATTERNMAKER METAL Height 172.7 cm (5' 8 ) 12/03/2021 9:42 AM PATTERNMAKER METAL Body Mass Index 21.13 12/03/2021 9:42 AM PATTERNMAKER METAL Plan of Treatment Health Maintenance Due Date Last Done Comments HPV VACCINES (1 - Male 3-dose series) 2014 DTAP/TDAP/TD VACCINES (1 - Tdap) 2018 HEPATITIS B VACCINES (1 of 3 - 19+ 3-dose series) 11/12 INFLUENZA VACCINE (#1) 2025 Medical Devices Implanted Type Area It Program Manager Device Identifier Shelf Expiration Date Model / Serial / Lot Hemostatic Surgiflo 8ml W/ Thrombin 2994 - [id number] Implanted:Qty: 1 on 07/24/2021 at [facility] Hemostatic N/A: Cranial J&J[employer] [id number] 12/08/2022 2994 / / [id number] Hemostatic Surgiflo 8ml W/ Thrombin 2994 - [id number] Implanted:Qty: 1 on 07/24/2021 at [facility] Hemostatic N/A: Cranial J[employer] [id number] 11/10/2022 2994 / / [id number] Hemostatic Surgicel 6x9in 1947 - [id number] Implanted:Qty: 1 on 07/24/2021 at [facility] Hemostatic N/A: Cranial J&J- [employer] [id number] 12/08/2024 1946 / / [id number] Hemostatic Surgiflo 8ml W/ Thrombin 2994 - [id number] Implanted:Qty: 1 on 07/24/2021 at [facility] Hemostatic N/A: Cranial J&J[employer] [id number] 12/08/2022 2994 / / [id number] Hemostatic Surgiflo 8ml W/ Thrombin 2994 - [id number] Implanted:Qty: 1 on 07/24/2021 at [facility] Hemostatic N/A: Cranial J&J- [employer] [id number] 11/10/2022 2994 / / [id number] Hemostatic Surgifoam Sz100 1973 - [id number] Implanted:Qty: 1 on 07/24/2021 at [facility] Hemostatic N/A: Cranial J&J- [employer] [id number] 03/05/2025 1974 / / [id number] Plate Matrxneuro Bur Hl Cvr 023 - [id number] Implanted:Qty: 1 on 07/24/2021 by Ela Vasquez MD at [facility] Plate N/A: Cranial J&J- DEPUY SYNTHES [id number] 503.0 23 / / Plate Matrxneuro Bur Hl Cvr 023 - [id number] Implanted:Qty: 1 on 07/24/2021 by Ela Vasquez MD at [facility] Plate N/A: Cranial J&J- DEPUY SYNTHES [id number] 503.0 23 / / Plate Matrxneuro X .064 - [id number] Implanted:Qty: 1 on 07/24/2021 by Ela Vasquez MD at [facility] Plate N/A: Cranial J&J- DEPUY SYNTHES [id number] 503.0 64 / / Screw Matrixneuro Sd . - [id number] Implanted:Qty: 1 on 07/24/2021 by Ela Vasquez MD at [facility] Screw N/A: Cranial J&J- DEPUY SYNTHES [id number] 503.1 04.01 / / Screw Matrixneuro Sd .. - [id number] Implanted:Qty: 1 on 07/24/2021 at [facility] Screw N/A: Cranial J&J- DEPUY SYNTHES [id number] 503.1 04.01 / / Screw Matrixneuro Sd .. - [id number] Implanted:Qty: 1 on 07/24/2021 at [facility] Screw N/A: Cranial J&J- DEPUY SYNTHES [id number] 04.503.1 04.01 / / Screw Matrixneuro Sd 503.104. - [id number] Implanted:Qty: 1 on 07/24/2021 at [facility] Screw N/A: Cranial J&J- DEPUY SYNTHES [id number] 04.503.1 04.01 / / Screw Matrixneuro Sd 503.104. - [id number] Implanted:Qty: 1 on 07/24/2021 at [facility] Screw N/A: Cranial J&J- DEPUY SYNTHES [id number] 04.503.1 04.01 / / Screw Matrixneuro Sd 503.104. - [id number] Implanted:Qty: 1 on 07/24/2021 at [facility] Screw N/A: Cranial J&J- DEPUY SYNTHES [id number] 04.503.1 04.01 / / Screw Matrixneuro Sd .104. - [id number] Implanted:Qty: 1 on 07/24/2021 at [facility] Screw N/A: Cranial J&J- DEPUY SYNTHES [id number] 04.503.1 04.01 / / Screw Matrixneuro Sd .104. - [id number] Implanted:Qty: 1 on 07/24/2021 at [facility] Screw N/A: Cranial J&J- DEPUY SYNTHES [id number] 04.503.1 04.01 / / Screw Matrixneuro Sd .104. - [id number] Implanted:Qty: 1 on 07/24/2021 at [facility] Screw N/A: Cranial J&J- DEPUY SYNTHES [id number] 04.503.1 04.01 / / Screw Matrixneuro Sd 503.104. - [id number] Implanted:Qty: 1 on 07/24/2021 by Ela Vasquez MD at [facility] Screw N/A: Cranial J&J- DEPUY SYNTHES [id number] 04.503.1 04.01 / / Screw Matrixneuro Sd 503.104. - [id number] Implanted:Qty: 1 on 07/24/2021 at [facility] Screw N/A: Cranial J&J- DEPUY SYNTHES [id number] 04.503.1 04 / / Insurance [address] [place] [address] RX INFOCROSSING Medicaid [address] [place] [address] [place] [address] Advance Directives For more information, please contact: [phone] * Full Code (Latest Code Status on File) Date Activated Date Inactivated Comments 11/20/2021 1:05 PM 11/20/2021 7:19 PM * Full Code Date Activated Date Inactivated Comments 07/24/2021 2:21 AM 07/28/2021 8:11 PM
[2025-07-17 12:54] VITALS: BP 121/89; PULSE 88; TEMP 36.8; O2SAT 98
[2025-07-17 13:33] LABS: Hematocrit 41.5 % (37-53); Hemoglobin 14.10 g/dL (11.27-16.99); Mean Corpuscular HGB Conc 34.0 g/dL (30-55); Mean Corpuscular Hemoglobin 30.8 pg (27-33); Mean Corpuscular Volume 90.6 fl (82-101); Nucleated Red Blood Cells % 0 %; Platelet Count 254 10^3/cmm (157-399); Red Blood Count 4.58 10^6/uL (3.85-5.65); White Blood Count 7.19 10^3/uL (3.29-11.43)
[2025-07-17 13:50] LABS: Alanine Aminotransferase 10 U/L (0-41); Albumin Level 4.3 g/dL (3.5-5.2); Alkaline Phosphatase 101 U/L (40-130); Anion Gap 16.3 (5-19); Aspartate Amino Transferase 14 U/L (0-40); Blood Urea Nitrogen 10 mg/dL (6-20); Calcium 9.3 mg/dL (8.5-10.5); Carbon Dioxide 24 mmol/L (22-29); Chloride 103 mmol/L (98-107); Creatinine Clr Calc Pharmacy 142.6519; Globulin 3.0 g/dL (1.3-4.6); Glucose 97 mg/dL (65-115); Osmolality Calculated 289 mOsm/kg (285-295); Potassium 3.3 mmol/L (3.5-5.1); Sodium 140 mmol/L (136-145); Total Protein 7.3 g/dL (6.6-8.7)
== END 2025-07-17 15:05 | disposition left against medical advice (07) ==
PROVIDERS: Physician Assistant; Emergency Provider Family Medicine
DX: Z01.89 Encounter for other specified special examinations (principal); Z53.21 Procedure and treatment not carried out due to patient leaving prior to being seen by health care provider
CPT/HCPCS: 36415; 80053; 85025

== ENCOUNTER → 2025-09-19 18:45 | Outpatient (BNVA) | payer SELFPAY | PROVIDERS: Visit Provider Emergency Medicine | DX: M70.22 Olecranon bursitis, left elbow (principal) | CPT/HCPCS: 87070; 87075; 87205 ==

== ENCOUNTER 2025-09-24 13:50 | Emergency (ER) | payer SELFPAY ==
[2025-09-24 13:56] VITALS: BP 123/78; PULSE 81; RESP 16; TEMP 36.6; O2SAT 99
--- NOTE | 2025-09-24 14:11 | ED_ITS ---
HPI - Extremity Problem General: Chief complaint: Skin/Abscess/Foreign Body Stated complaint: R elbow swelling Time Seen by Provider: 09/24/25 14:03 Source: patient Mode of arrival: ambulatory Limitations: no limitations History of Present Illness: Patient is a 24-year-old male presents to ED today along with his mother for evaluation of right elbow swelling. Patient was seen 10 days ago at the walk-in clinic and diagnosed with a right olecranon bursitis. He did have the bursa aspirated for culture. Reviewed visit and culture-no WBCs or organisms seen. No growth thus far. Patient concerned that swelling has not gone away. He states he was under the assumption that once drained, it would resolve. He has not noticed redness/warmth or significnt pain. Vitals stable. He states he does work at [employer] and does a lot of repetitive movements. Complaint: joint swelling Onset (ago): day(s) Location: right and elbow Radiation: none Relieving factors: nothing Exacerbating factors: nothing Associated symptoms: Reports no associated symptoms; Deny fever(s) Related Data Home Medications ?Medication ?Instructions ?Recorded ?Confirmed No Known Home Medications 09/19/2509/10 Allergies Allergy/AdvReac Type Severity Reaction Status Date / Time No Known Allergies Allergy Verified 07/17/25 12:57 Review of Systems Const: Denies: fever(s) Musc: Reports: joint swelling; Denies: extremity pain, extremity swelling, joint redness, joint warmth or joint stiffness Neuro: Denies: numbness in extremities or sensory changes [facility] ED PFSH: Medical History Subdural hematoma Surgical History H/O craniotomy Social History Smoking and tobacco/nicotine status: current every day tobacco/nicotine user Physical Exam Const: COMMON NORMALS: no acute distress, average body habitus, no limitations, healthy appearing, alert and well nourished Extremity: COMMON NORMALS: full ROM and capillary refill normal GENERAL: Yes normal exam except as noted RIGHT UPPER EXTREMITY: Yes elbow joint (R ol ecranon bursitis; no overlying warmth/erythema) Right elbow: Yes ROM (full fairly painless ROM) and Yes neurovascular exam (normal) Neuro: COMMON NORMALS: moves all extremities, no focal motor deficits and no sensory deficits noted SENSORIUM/ORIENTATION: Yes alert Skin: COMMON NORMALS: no rashes or lesions noted GENERAL SKIN EXAM: no rashes or lesions noted TRAUMA: no lacerations or abrasions Course Vital Signs: Vital signs: Vital Signs Temperature 97.9 F 09/24/25 13:56 Pulse Rate 81 09/24/25 13:56 Respiratory Rate 16 09/24/25 13:56 Blood Pressure 123/78 09/24/25 13:56 Pulse Oximetry 99 09/24/25 13:56 Oxygen Delivery Me thod Room Air 09/24/25 13:56 MDM - Extremity (Nontraumatic) Medical Decision Making Patient here with a right olecranon bursitis. This was aspirated 5 days ago and no WBCs/organisms were seen. No growth up until this point has been noted. At this point discussed conservative treatment for olecranon bursitis including rest/avoidance of aggravating factors/repetitive movements, compression, ice, NSAIDs, etc. Discussed surgical excision for refractory symptoms although most are amendable to conservative therapies. Medical Records I reviewed the patient's medical records. No radiology studies performed this visit Discharge Plan Discharge Patient Disposition: Home Clinical Impression: Olecranon bursitis of right elbow Condition: Stable Prescriptions: No Action povidone-iodine [Betadine Swabsticks] 10 % swab 1 applic topical ONCE Qty: 1 0RF No Known Home Medications Discharge Orders: Discharge ED (Routine); Ordered 09/24/25 Ordered By: Angela Villanueva Patient Instructions: Elbow Bursitis (ED), Patient Portal & Jd Instructions Activity Restrictions/Additional Instructions: Initial therapy for all patients???Patients with bursitis may benefit from relative rest, bursa protection, cold compresses, and analgesia. ?Relative rest, rehabilitative exercise, and joint protection?? Avoiding repetitive movements of and pressure over the affected bursa can help speed improvement. Depending on the location of the affected bursae, patients may benefit from various assistive devices to help protect the joint from irritation, such as cushions, pads, splints, braces, and/or custom-fit orthotics. As an example, we typically use a compression bandage to treat olecranon bursitis. ?Cold compresses?? Using cold compresses with ice may help temporarily relieve pain from bursitis. Typically, compresses may be applied for 15 minutes every few hours, taking care to avoid frostbite/use a barrier between ice and skin. ?Analgesic and antiinflammatory medications?? We frequently prescribe a short course of nonsteroidal antiinflammatory drugs (NSAIDs) to reduce pain and inflammation from bursitis-such as 800mg ibuprofen every 8 hours. Stand Alone Forms: Work/School Release Print Language: Mohawk Coding Level of Care Code ED [employer] for [employer]
== END 2025-09-24 14:18 | disposition home or self-care (01) ==
PROVIDERS: Emergency Provider Physician Assistant
DX: M70.21 Olecranon bursitis, right elbow (principal); Z72.0 Tobacco use
CPT/HCPCS: 99282